=== PATIENT | male | born 1975 | race Caucasian/White ===

== ENCOUNTER 2018-02-21 11:34 | Day surgery (SDC) | payer OTHER ==
[2018-02-21] MEDS ORDERED: LACTATED RINGERS 1,000 ML IV ONE (12:08)
[2018-02-21] MEDS ORDERED: MIDAZOLAM 2 MG/2 ML VIAL IVP ONE (13:57)
[2018-02-21] MEDS ORDERED: fentaNYL 250 MCG/5 ML VIAL IVP ONE (13:57)
[2018-02-21 15:39] VITALS: BP 106/63
== END 2018-02-21 11:35 | disposition home or self-care (01) ==
LOC: SDS 11:34
PROVIDERS: ATTEND Internal Medicine
PROC: 0DBN8ZZ Excision of Sigmoid Colon, Via Natural or Artificial Opening Endoscopic (ICD-10-PCS; 2018-02-21)
PROC: 0DBM8ZZ Excision of Descending Colon, Via Natural or Artificial Opening Endoscopic (ICD-10-PCS; 2018-02-21)
PROC: 0DBK8ZZ Excision of Ascending Colon, Via Natural or Artificial Opening Endoscopic (ICD-10-PCS; principal; 2018-02-21 13:00)
DX: K62.5 Hemorrhage of anus and rectum (principal); K64.1 Second degree hemorrhoids; D12.2 Benign neoplasm of ascending colon; K63.5 Polyp of colon; Z80.0 Family history of malignant neoplasm of digestive organs
CPT/HCPCS: 45380; 45385; J7120; 88305

== ENCOUNTER 2019-06-18 10:10 | Outpatient (CLI) | payer OTHER ==
[2019-06-18 13:55] VITALS: BP 124/78
--- NOTE | 2019-06-18 13:55 | SLEEP CARE CONSULTATION ---
Information from patient questionnaire entered by Marleni Barrientos. I have reviewed and concur with the information entered by Marleni Barrientos. This document represents the service I personally performed and the decisions made by me, Deric Carrasco MD, [facility]. History of Present Illness Reason for Visit: New patient Chief Complaint: reports: Unrefreshed sleep, Excessive daytime sleepiness, Observed pauses in breathing, Fatigue, Frequent awakenings at night, Other (loss of memory, difficulty concentrating/speaking, always dizzy) Duration of Symptoms: 10/2017 Usual bedtime: 2200 Time it takes to fall asleep: 10 minutes Snores at night: Yes (sometimes) Observed to quit breathing while asleep: Yes Number of times waking at night: 2 Reasons for waking at night: reports: Other (headache, dreams/nightmares, feeling of suffocating) Toss, Turn, or Twitch while sleeping: Yes Recalls having dreams: Yes Usually gets out of bed at: 0600 Feels refreshed in the morning: No Morning headache: Yes Sleepy or fatigued during the day: Yes Ever fallen asleep while driving: No Takes day naps: Yes Dreams during day naps: Yes Prior sleep studies: No Additional HPI information: I had the pleasure of seeing Mr. Renteria today regarding the possibility of him having a sleep disorder. As you know, he is a 43 year old gentleman who complains of dizziness, difficulty concentrating, and memory loss. He had a colonoscopy two years ago and was observed to stop breathing. He was recommended then to have a sleep study. The patient tells me that he normally goes to bed around 10 pm, and it takes him approximately 10 minutes to fall asleep. He has been told that he occasionally snores. He sleeps alone. He can recall waking up on the average of 2 times during the night. Most of the time he wakes up because of nightmares and headaches. He has awakened occasionally because of choking and having to gasp for air. There is a lot of tossing and turning in his sleep. No somniloquy (sleep talking) or somnambulism (sleep walking). Generally he can recall having dreams. In the morning he usually gets up out of the bed around 6 a.m. not feeling refreshed nor rested. He usually does have a morning headache that lasts an hour. During the day he c omplains of feeling sleepy and fatigued. His score on Alma Sleepiness Scale is 15 out of 24. He has never fallen asleep while driving nor has had any accident due to sleepiness. He usually takes naps during the day. Upon falling asleep during the day he reports having dreams. He has sleep paralysis. He denies having experienced cataplexy or symptoms of restless leg syndrome. He reports having impaired concentration during the day. Subjective Initial Alma Sleepiness Scale score: 15 Past Medical History Past Medical History: reports: Other (left knee pain) Social History The patient's occupation is active . Patient is Single and lives in [place]. Have you smoked in the past 12 months: No Alcohol use: Yes Alcohol amount and frequency: 1-3 drinks, once/week Caffeine use: Yes Caffeine amount and frequency: 1-2 cups/morning Family History Family history of sleep disordered breathing: Yes Family Hx Sleep Apnea: Mother: Snoring, Sibling: Snoring Allergies and Home Medications Drug allergies reviewed: Yes Home medication list reviewed: Yes (ibuprofen) Review of Systems Weight loss over past 5 years: 5 Cardiovascular: reports: irregular heart rate or pulse, leg or foot swelling Respiratory: denies: shortness of breath, wheeze, sputum production, chronic cough, other Gastrointestinal: denies: heartburn, difficulty swallowing, nausea, vomitting, diarrhea, abdominal pain, other Urinary: denies: incontinence, frequency, urgency, impotence, other Neurological: reports: headaches, head trauma, speech dysfunction, gait or balance problems, other (dizziness) Psychiatric: reports: anxiety Ear/Nose/Throat: reports: dry mouth/throat Endocrine: reports: sluggishness, unexplained weakness Musculoskeletal: reports: joint pain Immunologic: denies: sneezing, rash, itching, allergies to food or environment, other Physical Exam Vital signs obtained and entered by: Dr. Carrasco Blood Pressure: 124/78 Cuff size: regular Heart Rate: 72 O2 Saturation: 94 Height: 5 ft 6 in Weight: 195 lb Body Mass Index: 31.4 BMI Classification: Obesity Class 1 Neck circumference: 17 Mood/affect: Normal HEENT: No craniofacial malformation Nostrils: patent to airflow Turbinates: normal Septum: midline Mouth and throat: narrow oropharynx Soft palate: long Hard palate: normal Uvula: normal Uvula visualization: 50% Mallampati Class II Tongue: normal in size Tonsils: small Chin and jaw: normal size and position Neck: normal w/o lymphadenopathy or thyromegaly Heart: regular rate and rhythm Lungs: clear bilaterally Abdomen: soft, non-tender Extremities: no edema or clubbing Neurologic: intact, no focal deficits Impression and Plan IMPRESSION: 1. Obstructive Sleep Apnea-Hypopnea Syndrome, as suggested by history of loud and irregular snoring, observed cessation of breath while asleep, frequent awakenings during the night, unrefreshed sleep, morning headache, cognitive impairment, and daytime hypersomnolence. Narrow oropharynx and obesity are common predisposing factors for obstructive sleep apnea-hypopnea syndrome. Pathophysiology of sleep-disordered breathing was discussed. I recommend proceeding to polysomnography to confirm the diagnosis and to assess severity. If he has significant sleep disordered breathing, a manual CPAP titration study will also be performed to find the optimal treatment pressure. I informed the patient of what the sleep studies involve and after some discussion, he agreed to proceed. Plan: 1. Schedule polysomnography + manual CPAP titration study 2. Avoid long distance driving or when feeling sleepy. 3. Avoid alcohol, sedative and muscle relaxant around bedtime. 4. Attempt to lose weight. 5. Return in 1 to 2 weeks after the study to discuss results and initiate therapy. I spent 100% of this visit face to face with the patient with greater than 50% of this was spent time counseling the patient and coordination of care.
== END 2019-06-18 10:11 | disposition home or self-care (01) ==
LOC: SC 10:10
PROVIDERS: ATTEND Internal Medicine Pulmonary Disease
DX: R06.83 Snoring (principal); R06.81 Apnea, not elsewhere classified; G47.8 Other sleep disorders; R51 Headache; R41.89 Other symptoms and signs involving cognitive functions and awareness; G47.10 Hypersomnia, unspecified; E66.9 Obesity, unspecified; Z68.31 Body mass index [BMI] 31.0-31.9, adult
CPT/HCPCS: 99203; 99212

== ENCOUNTER 2019-06-20 19:11 | Outpatient (CLI) | payer OTHER | END 2019-06-20 19:12 | disposition home or self-care (01) | LOC: SC 19:11 | PROVIDERS: ATTEND Internal Medicine Pulmonary Disease | DX: G47.61 Periodic limb movement disorder (principal); G47.63 Sleep related bruxism; G47.8 Other sleep disorders | CPT/HCPCS: 95810 ==

== ENCOUNTER 2019-06-24 15:04 | Outpatient (CLI) | payer OTHER ==
[2019-06-24 16:13] VITALS: BP 106/74
--- NOTE | 2019-06-24 16:13 | SLEEP CARE CONSULTATION ---
Information from patient questionnaire entered by Charlee Estrella. I have reviewed and concur with the information entered by Charlee Estrella. This document represents the service I personally performed and the decisions made by me, Alayna Petit RN, MSN, [employer]. History of Present Illness Initial Martha Sleepiness Scale score: 15 Current Martha Sleepiness Scale score: 14 Additional HPI information: MARY ALVAREZ returns with for follow up of the recently performed polysomnography. I explained the pathophysiology behind obstructive sleep apnea. Patient does not have sleep apnea and was advised how weight gain could increase the risk of developing sleep apnea in the future. I strongly encouraged the patient to lose some weight. l Patient has light snoring. Snoring can be reduced by weight loss. Weight loss is best achieved with diet consult. Patient instructed to contact PCP for referral. Snoring can also be treated with an oral appliance from a dentist. Patient not interested. In addition, an ENT evaluation can be done to see if other treatment is indicated. Patient counseled not drink alcohol less than 4 hours before bedtime as it can increase snoring and apnea. Patient does not drink alcohol. Patient was cautioned about risks of drowsy driving until sleepiness symptoms resolve. Patient denies drowsy driving. Sleep Study - Results Polysomnography/Home Sleep Study results: The quality of the study is good. The patient had slightly reduced sleep efficiency due to prolonged awakening in the middle of the night. The sleep architecture was abnormal for sleep fragmentation and reduced amount of time spent in REM sleep. Respiratory monitoring showed no significant sleep disordered breathing (AHI = 1.8) or hypoxia (zoe oxygen saturation of 90%). The patient slept adequately in supine position (supine AHI = 0.5; non-supine = 3.59). Snore was light in intensity. There was moderate periodic leg movement of sleep contributing to the sleep fragmentation. Cardiac rhythm was normal sinus rhythm without significant arrhythmia. No abnormal behavior (parasomnia) observed during the night except for bruxism. Allergies and Home Medications Known drug allergies: Yes Home medication list reviewed: No (none) Review of Systems Review of systems same as previous: Yes Physical Exam Blood Pressure: 106/74 Cuff size: long Heart Rate: 84 O2 Saturation: 98 Height: 5 ft 6 in Weight: 198 lb 9.6 oz Body Mass Index: 32.0 BMI Classification: Obesity Class 1 Impression and Plan 1. Snoring, light, but no significant sleep disordered breathing. Patient advised that often weight loss will reduce snoring as well as apnea risk. An oral appliance can also be used for snoring but patient not interested. This would require a dental consultation. Patient cautioned not to use other online appliances as can cause bite issues. An ENT consult can also be helpful to determine if any other treatment is an option. Patient had some sleep questions. He has had vivid dreams since moving here in 2017. Denies PTSD. I will check with my medical sales. He also hurt his knee at end of 2017 and this could be cause of sleep disruption and awareness of dreams. He has a regular sleep schedule and generally in bed 6-7 hours. How to sleep better given and reviewed to see if this might help. 2. Periodic limb movement, moderate, that did fragment patients sleep. Periodic limb movement of sleep (PLMS) is characterized by episodes of repetitive limb movements that occur during sleep and usually involve the lower limbs. The etiology is unknown but can be associated with restless leg syndrome (RLS), neuropathy, spinal cord diseases, kidney disease, rheumatological disorders, narcolepsy, obstructive sleep apnea, and REM sleep behavior disorder. Other factors that can increase PLMS and/or RLS are heredity and iron deficiency as reflected by a low serum ferritin level below 50 to 75mcg / L. Several medications can precipitate or aggravate PLMS such as selective serotonin re- uptake inhibitor antidepressants, tricyclic antidepressants, lithium, and dopamine receptor antagonists with the exception of bupropion. Caffeine can also aggravate PLMS and should be avoided. Sleep hygiene methods can also improve sleep as well. Since he has knee pain, this could be a cause of his PLMS or other condition such as iron deficiency. Thus patient advised to follow up with PCP for further evaluation. Perhaps this is causing some of his sleepiness symptoms symptoms and /or other medical condition. 3. Bruxism, Patient advised to follow up with his dentist to see if treatment indicated. * Attempt to lose weight * Avoid alcohol consumption near bedtime * The patient is cautioned about driving until sleepiness is completely resolved. * Follow up with PCP for further evaluation of cause of PLMS and fatigue. * Return as needed. Time Spent with Patient (minutes): 30 I spent 100% of this visit face to face with the patient with greater than 50% of this was spent time counseling the patient and coordination of care.
== END 2019-06-24 15:05 | disposition home or self-care (01) ==
LOC: SC 15:04
PROVIDERS: ATTEND Nurse Practitioner Family
DX: R06.83 Snoring (principal); G47.61 Periodic limb movement disorder; G47.63 Sleep related bruxism; E66.9 Obesity, unspecified; Z68.32 Body mass index [BMI] 32.0-32.9, adult
CPT/HCPCS: 99212; 99214